=== PATIENT | female | born 1970 | race Caucasian/White ===

== ENCOUNTER → 2017-04-29 10:11 | Outpatient (CLI) | payer BC | END | disposition home or self-care (01) | LOC: D.US 10:00 → D.MAMMO 11:00 | DX: Z12.31 Encounter for screening mammogram for malignant neoplasm of breast (principal); N93.8 Other specified abnormal uterine and vaginal bleeding ==

== ENCOUNTER → 2017-06-06 16:34 | Outpatient (CLI) | payer BC | END | disposition home or self-care (01) | LOC: D.MAMMO 09:30 | DX: R92.8 Other abnormal and inconclusive findings on diagnostic imaging of breast (principal) ==

== ENCOUNTER 2017-06-27 06:07 | Day surgery (SDC) | payer BC ==
[~2017-06-27] VITALS: Ht 162.6 cm; Wt 65.8 kg
[2017-06-27 06:27] VITALS: BP 133/88; Ht 162.6 cm; Wt 65.8 kg
[2017-06-27 06:54] LABS: HCG URINE NEGATIVE (NEGATIVE)
[2017-06-27 07:21] LABS: HEMATOCRIT 40.9 % (36.0-48.0); HEMOGLOBIN 13.9 g/dL (12-16); MCH 29.6 pg (26.0-34.0); MEAN PLATELET VOLUME 9.8 fL (7.4-10.4); RBC 4.7 10x6/uL (4.00-5.40); RDW 12.6 % (11.5-14.5); WBC 10.1 10x3/uL (4.8-10.8)
--- NOTE | 2017-06-27 09:35 | NUR ---
0915 PIV DC W/CATHETER TIP INTACT 0920 PT ESCORTED OUT VIA WC FAMILY DRIVING
--- NOTE | 2017-06-28 16:21 | OP ---
PATIENT NAME: ALYCIA GREGORY MEDICAL RECORD: [id number] :74 LOCATION:D.[facility] ADMISSION DATE: SURGEON: DEEJAY SMITH MD DATE OF OPERATION: 06/27/2017 PREOPERATIVE DIAGNOSIS: Left hip pain -- labral tear. POSTOPERATIVE DIAGNOSIS: Left hip pain -- labral tear. PROCEDURE: Left hip injection under fluoroscopy. SURGEON: Deejay Smith MD. ANESTHESIA: TIVA. INTRAOPERATIVE COMPLICATIONS: None. OPERATIVE SUMMARY IN DETAIL: After obtaining the appropriate preoperative orthopedic surgery consents as well as anesthetic consultation, evaluation and clearance, the patient was brought to the operating room and placed on the operating table in supine position. After adequate TIVA anesthesia was administered, the patient's left groin area was prepped and draped in a routine sterile fashion. An 18-gauge needle was introduced under fluoroscopic guidance. A small amount of Isovue was utilized to assure appropriate placement of the needle and then 7 cc of 0.25% Marcaine with epinephrine and 80 mg of Depo-Medrol were injected into the left hip. The patient tolerated the procedure well and was taken to outpatient in stable condition. TRANSINT:[id number] Voice Confirmation ID: [id number] DOCUMENT ID: [id number] DEEJAY SMITH MD at 1621 CC: [id number] DICTATION DATE: 06/27/17 08 DAM TENDER ASSISTANT: 06/27/17 1424 DEP [facility] 06/27/[address] [address]
== END 2017-06-27 09:20 | disposition home or self-care (01) ==
LOC: D.OPS 06:07 → D.PAN 08:00 → D.OPS 08:05 → D.PAN 19:00
PROVIDERS: Anesthesiology; Orthopaedic Surgery
DX: M25.552 Pain in left hip (principal); S73.102A Unspecified sprain of left hip, initial encounter; Z01.812 Encounter for preprocedural laboratory examination

== ENCOUNTER 2017-08-22 05:40 | Day surgery (SDC) | payer BC ==
[2017-08-20 13:49] LABS: HEMATOCRIT 40.5 % (36.0-48.0); HEMOGLOBIN 13.6 g/dL (12-16); MCH 29.4 pg (26.0-34.0); MCHC 33.6 g/dL (31.0-37.0); MCV 87.7 fL (80.0-100.0); MEAN PLATELET VOLUME 10.3 fL (7.4-10.4); RBC 4.62 10x6/uL (4.00-5.40); RDW 13.1 % (11.5-14.5)
[2017-08-22 06:27] VITALS: BP 134/77; BMI 24.7
[2017-08-22 06:50] LABS: HCG URINE NEGATIVE (NEGATIVE)
[2017-08-22] MEDS ORDERED: HYDROCODONE-APA1 TAB PO (09:58)
--- NOTE | 2017-08-22 16:07 | NUR ---
1100 IV DC WITH CATHER TIP INTACT
--- NOTE | 2017-08-23 10:15 | OP ---
PATIENT NAME: ALYCIA GREGORY MEDICAL RECORD: [id number] :74 LOCATION:[facility] ADMISSION DATE: SURGEON: LUIS JUAREZ, DEEJAY BENOIT DATE OF OPERATION: 08/22/2017 PREOPERATIVE DIAGNOSES: Impingement syndrome of the left shoulder with the SLAP lesion of the left shoulder. POSTOPERATIVE DIAGNOSES: Impingement syndrome of the left shoulder with the SLAP lesion of the left shoulder. PROCEDURES: 1. Arthroscopic SLAP repair. 2. Arthroscopic distal clavicle excision of the left shoulder, 1 cm done through separate incision. 3. Arthroscopic subacromial decompression with acromioplasty and bursectomy. SURGEON: Deejay Smith MD ANESTHESIA: General. INTRAOPERATIVE COMPLICATIONS: None. SUMMARY OF PATHOLOGIC FINDINGS: The patient had a bicipital labral complex tear just as seen on the MRI along with downward sloping acromion and acromioclavicular arthritis with inferior osteophytes on the distal clavicle. OPERATIVE SUMMARY IN DETAIL: After obtaining the appropriate preoperative orthopedic surgery consent as well as anesthetic consultation, evaluation and clearance, the patient was brought to the operating room, placed on the operating table in supine position. After general laryngeal mask airway was administered, the patient was placed in a right lateral decubitus position. All pressure points were well padded to include down leg peroneal pad as well as axillary roll. She was held firmly to the operating room table using the vacuum pack suction system. Left upper extremity and shoulder were then prepped and draped in routine sterile fashion. The arm was held in the Arthrex traction boom at 30 degrees of forward flexion, 30 degrees of abduction with 10 pounds of traction laterally. Arthroscopy was established in the glenohumeral joint from a posterior portal. Anterior portal was established in the anterior safe interval. Diagnostic arthroscopy did reveal the above finding. Accessory tertiary portal was created and the superior aspect of the glenoid was debrided and slightly decorticated in preparation for reapproximation of labral tissue. Two 2.9 PushLocks were used with double labral tape just anterior to the bicipital labral junction and just posterior to the bicipital labral junction. In a very petite woman, I felt like this was likely enough to offer rigid anchoring for healing. Attention was then turned to the subacromial space. Carlton tissue ablation system was utilized to denude the undersurface of the acromion and release the coracoacromial ligament. A 5-0 barrel bur was used to perform acromioplasty at the level of acromioclavicular joint. The distal clavicle was then taken down through separate anterior incision under direct arthroscopic visualization. Having completed this, all residual bursa was taken down. The rotator cuff did have a superficial fraying. There was no full thickness rotator cuff tear noted. Having completed this, arthroscopy portals were closed in routine interrupted fashion using 4-0 Prolene. Sterile dressings were applied. The patient was awakened, taken to recovery room in stable OPERATIVE REPORT [id number] ALYCIA GREGORY S condition. All final needle and sponge counts were correct. TRANSINT:[id number] Voice Confirmation ID: [id number] DOCUMENT ID: [id number] LUIS JUAREZ, DEEJAY BENOIT at 1015 CC: [id number] DICTATION DATE: 08/22/17 0948 CONSTRUCTION MGR: 08/22/17 1218 [facility] 08/22/17 [facility] [address] [place] [address]
== END 2017-08-22 11:30 | disposition home or self-care (01) ==
LOC: D.OPS 05:40 → D.PAN 09:15 → D.OPS 09:15 → D.PAN 09:55 → D.OPS 11:30 → D.PAN 12:30
PROVIDERS: Anesthesiology; Orthopaedic Surgery
DX: S43.432A Superior glenoid labrum lesion of left shoulder, initial encounter (principal); M75.42 Impingement syndrome of left shoulder; Z01.812 Encounter for preprocedural laboratory examination